=== PATIENT | male | born 1985 | race Asian ===

== ENCOUNTER 2024-05-31 14:12 | Emergency (ER) | payer OTHER ==
[~2024-05-31] VITALS: Ht 177.8 cm; Wt 100.0 kg
[2024-05-31 14:15] VITALS: PULSE 106; RESP 16; O2SAT 97
[2024-05-31 14:18] VITALS: BP 138/83; TEMP 36.6; O2SAT 100
[2024-05-31] MEDS: TETANUS, DIPHTHERIA, PERTUSSIS VAC/PF 0.5ML (>10YR OLD) IM ONE (15:51)
[2024-05-31] MEDS: LIDOCAINE HCL/PF 1% 10 MG/ML 5ML VIAL INFIL ONE (15:52)
[2024-05-31] MEDS: BACITRACIN ZINC OINT UDPKT TOP ONE (15:52)
== END 2024-05-31 18:20 | disposition home or self-care (01) ==
LOC: ER 14:12
DX: S61.512A Laceration without foreign body of left wrist, initial encounter (principal); X58.XXXA Exposure to other specified factors, initial encounter; Y93.89 Activity, other specified; Y92.89 Other specified places as the place of occurrence of the external cause; Y99.8 Other external cause status
CPT/HCPCS: 90715; 12002; 90471; 99283; J2003; Z7610